=== PATIENT | male | born 1950 | race Caucasian/White ===

== ENCOUNTER → 2016-08-31 | Outpatient (CLI) | payer MEDICAID ==
[2016-08-31 08:32] LABS: Basophils # (A) 0.1 k/uL (0-0.2); Basophils % (A) 1 %; CH 29.4; CHCM 33.3; Eosinophils # (A) 0.1 k/uL (0-0.7); Eosinophils % (A) 2 %; HCT 49.4 % (39.0-53.0); HDW 3.06; HGB 16.4 gm/dL (13.0-17.5); Luc # (Auto) 0.09; Luc % (Auto) 1; Lymphocytes # (A) 1.5 k/uL (1.0-4.8); Lymphocytes % (A) 22 %; MCH 29.5 pg (25.0-35.0); MCHC 33.2 g/dL (31.0-37.0); MCV 88.7 fL (80.0-100.0); Mean Platelet Volume 7.9; Monocytes # (A) 0.3 k/uL (0-1.0); Monocytes % (A) 4 %; Neutrophils # (A) 4.7 k/uL (1.3-7.7); Neutrophils % (A) 70 %; RBC 5.57 m/uL (4.30-5.90); RDW 13.9 % (11.5-15.5); WBC 6.8 k/uL (3.8-10.6)
[2016-08-31 08:34] LABS: Appearance,Urine Clear (Clear); Bilirubin,Urine Negative (Negative); Glucose,Urine (UA) Negative (Negative); Ketones,Urine Negative (Negative); Leukocyte Esterase,Urine Negative (Negative); Nitrite,Urine Negative (Negative); PH, Urine 6.5 (5.0-8.0); Protein,Urine Negative (Negative); Specific Gravity,Urine 1.016 (1.001-1.035); UA Billing (MACRO vs. MICRO) CHEM; Urobilinogen,Urine <2.0 mg/dL (<2.0)
[2016-08-31 10:52] LABS: Erythrocyte Sedimentation Rate 2 mm/hr (0-15)
[2016-08-31 11:56] LABS: Hemoglobin A1C 4.8 % (4.2-6.1)
[2016-08-31 17:46] LABS: ALT 31 U/L (21-72); AST 26 U/L (17-59); Alkaline Phosphatase 58 U/L (38-126); Anion Gap 11 mmol/L; Blood Urea Nitrogen 20 mg/dL (9-20); Calcium 9.7 mg/dL (8.4-10.2); Carbon Dioxide 28 mmol/L (22-30); Chloride 107 mmol/L (98-107); Cholesterol 184 mg/dL (<200); Creatine Kinase 57 U/L (55-170); Glucose 95 mg/dL (74-99); HDL Cholesterol 50 mg/dL (40-60); Non-African American GFR(MDRD) >60 (>60 ml/min/1.73 sqM); Potassium 4.4 mmol/L (3.5-5.1); Sodium 146 mmol/L (137-145); Total Protein 6.9 g/dL (6.3-8.2); Triglycerides 134 mg/dL (<150)
[2016-08-31 18:14] LABS: Prostate Specific Antigen 2.69 ng/mL (0.00-4.00)
== END | disposition home or self-care (01) ==
LOC: LABWHC1 07:52
PROVIDERS: ATTEND Internal Medicine
DX: M35.3 Polymyalgia rheumatica (principal); I10 Essential (primary) hypertension; N40.0 Benign prostatic hyperplasia without lower urinary tract symptoms
CPT/HCPCS: 36415; 80053; 80061; 81003; 82306; 82550; 83036; 84153; 84439; 84443; 84550; 85025; 85652

== ENCOUNTER → 2017-04-04 | Outpatient (CLI) | payer MEDICAID ==
[2017-04-04 08:01] LABS: ALT 32 U/L (21-72); AST 26 U/L (17-59); Alkaline Phosphatase 63 U/L (38-126); Anion Gap 9 mmol/L; Blood Urea Nitrogen 18 mg/dL (9-20); Calcium 9.3 mg/dL (8.4-10.2); Carbon Dioxide 26 mmol/L (22-30); Chloride 108 mmol/L (98-107); Cholesterol 151 mg/dL (<200); Creatine Kinase 70 U/L (55-170); Glucose 91 mg/dL (74-99); HDL Cholesterol 56 mg/dL (40-60); Non-African American GFR(MDRD) >60 (>60 ml/min/1.73 sqM); Potassium 4.1 mmol/L (3.5-5.1); Sodium 143 mmol/L (137-145); Total Bilirubin 0.6 mg/dL (0.2-1.3); Total Protein 6.1 g/dL (6.3-8.2)
[2017-04-04 08:05] LABS: Basophils # (A) 0.1 k/uL (0-0.2); Basophils % (A) 1 %; CH 29.9; CHCM 32.7; Eosinophils # (A) 0.1 k/uL (0-0.7); Eosinophils % (A) 2 %; HCT 45.3 % (39.0-53.0); HDW 2.84; Luc % (Auto) 1; Lymphocytes # (A) 1.3 k/uL (1.0-4.8); Lymphocytes % (A) 16 %; MCH 30.4 pg (25.0-35.0); MCV 92.1 fL (80.0-100.0); Mean Platelet Volume 7.9; Monocytes # (A) 0.3 k/uL (0-1.0); Monocytes % (A) 4 %; Neutrophils # (A) 6.1 k/uL (1.3-7.7); Neutrophils % (A) 77 %; RBC 4.93 m/uL (4.30-5.90); WBC 7.9 k/uL (3.8-10.6); WBC (Perox) 8.21
[2017-04-04 09:04] LABS: Appearance,Urine Clear (Clear); Bilirubin,Urine Negative (Negative); Glucose,Urine (UA) Negative (Negative); Ketones,Urine Negative (Negative); Leukocyte Esterase,Urine Negative (Negative); Nitrite,Urine Negative (Negative); PH, Urine 6.5 (5.0-8.0); Protein,Urine Negative (Negative); Specific Gravity,Urine 1.016 (1.001-1.035); UA Billing (MACRO vs. MICRO) CHEM; Urobilinogen,Urine <2.0 mg/dL (<2.0)
[2017-04-04 09:40] LABS: Erythrocyte Sedimentation Rate 5 mm/hr (0-15)
[2017-04-04 10:14] LABS: Hemoglobin A1C 4.9 % (4.2-6.1)
== END | disposition home or self-care (01) ==
LOC: LAB 07:08
PROVIDERS: ATTEND Internal Medicine
DX: I10 Essential (primary) hypertension (principal); M35.3 Polymyalgia rheumatica
CPT/HCPCS: 36415; 80053; 80061; 81003; 82550; 83036; 84439; 84443; 84550; 85025; 85652

== ENCOUNTER → 2017-05-12 | Outpatient (CLI) | payer MEDICAID ==
[2017-05-12 09:18] LABS: Basophils # (A) 0.1 k/uL (0-0.2); Basophils % (A) 1 %; CH 29.5; CHCM 32.5; Eosinophils # (A) 0.1 k/uL (0-0.7); Eosinophils % (A) 2 %; HCT 50.2 % (39.0-53.0); HDW 2.84; HGB 16.2 gm/dL (13.0-17.5); Luc # (Auto) 0.07; Luc % (Auto) 1; Lymphocytes # (A) 1.2 k/uL (1.0-4.8); Lymphocytes % (A) 22 %; MCH 29.4 pg (25.0-35.0); MCHC 32.2 g/dL (31.0-37.0); MCV 91.3 fL (80.0-100.0); Mean Platelet Volume 8.4; Monocytes # (A) 0.3 k/uL (0-1.0); Monocytes % (A) 5 %; Neutrophils # (A) 3.8 k/uL (1.3-7.7); Neutrophils % (A) 69 %; WBC 5.5 k/uL (3.8-10.6); WBC (Perox) 5.46
[2017-05-12 09:52] LABS: Manual Review Performed
[2017-05-12 09:53] LABS: RBC Morphology Normal
== END | disposition home or self-care (01) ==
LOC: LABWHC1 08:32
PROVIDERS: ATTEND Internal Medicine
DX: D69.6 Thrombocytopenia, unspecified (principal)
CPT/HCPCS: 36415; 83615; 85025; 85045; 86038

== ENCOUNTER → 2017-12-04 | Outpatient (CLI) | payer MEDICARE ==
[2017-12-04 08:40] LABS: Basophils # (A) 0.1 k/uL (0-0.2); Basophils % (A) 1 %; Eosinophils # (A) 0.1 k/uL (0-0.7); Eosinophils % (A) 2 %; HCT 45.6 % (39.0-53.0); HGB 15.1 gm/dL (13.0-17.5); Lymphocytes # (A) 1.4 k/uL (1.0-4.8); Lymphocytes % (A) 25 %; MCH 29.1 pg (25.0-35.0); MCHC 33.1 g/dL (31.0-37.0); Mean Platelet Volume 7.7; Monocytes # (A) 0.3 k/uL (0-1.0); Monocytes % (A) 5 %; Neutrophils # (A) 3.7 k/uL (1.3-7.7); Neutrophils % (A) 65 %; Platelet Count 137 k/uL (150-450); RBC 5.18 m/uL (4.30-5.90); WBC 5.7 k/uL (3.8-10.6)
[2017-12-04 08:41] LABS: Appearance,Urine Clear (Clear); Bilirubin,Urine Negative (Negative); Blood,Urine Negative (Negative); Color,Urine Yellow; Glucose,Urine (UA) Negative (Negative); Ketones,Urine Negative (Negative); Leukocyte Esterase,Urine Negative (Negative); Nitrite,Urine Negative (Negative); PH, Urine 6.5 (5.0-8.0); Protein,Urine Negative (Negative); Specific Gravity,Urine 1.018 (1.001-1.035); Urobilinogen,Urine <2.0 mg/dL (<2.0)
[2017-12-04 08:54] LABS: ALT 28 U/L (21-72); AST 24 U/L (17-59); Albumin 3.9 g/dL (3.5-5.0); Alkaline Phosphatase 55 U/L (38-126); Anion Gap 10 mmol/L; Blood Urea Nitrogen 22 mg/dL (9-20); Calcium 9.2 mg/dL (8.4-10.2); Carbon Dioxide 29 mmol/L (22-30); Chloride 105 mmol/L (98-107); Cholesterol 146 mg/dL (<200); Creatine Kinase 51 U/L (55-170); Glucose 85 mg/dL (74-99); HDL Cholesterol 49 mg/dL (40-60); LDL Cholesterol,Calculated 75 mg/dL (0-99); Potassium 4.5 mmol/L (3.5-5.1); Sodium 144 mmol/L (137-145); Total Bilirubin 0.7 mg/dL (0.2-1.3); Triglycerides 109 mg/dL (<150); Uric Acid 5.2 mg/dL (3.5-8.5)
[2017-12-04 11:44] LABS: Erythrocyte Sedimentation Rate 2 mm/hr (0-15)
[2017-12-04 18:46] LABS: Hemoglobin A1C 4.9 % (4.0-6.0)
== END | disposition home or self-care (01) ==
LOC: LABWHC1 07:11
PROVIDERS: ATTEND Internal Medicine
DX: M35.3 Polymyalgia rheumatica (principal); I10 Essential (primary) hypertension
CPT/HCPCS: 36415; 80053; 80061; 81003; 82550; 83036; 84439; 84443; 84550; 85025; 85652

== ENCOUNTER → 2018-03-26 | Outpatient (CLI) | payer MEDICARE ==
--- NOTE | 2018-03-26 22:26 | MR ---
EXAMINATION TYPE: MR knee LT wo con DATE OF EXAM: 03/26/2018 COMPARISON: Outside left knee x-ray 6 days ago. HISTORY: Left knee pain for 3 weeks. TECHNIQUE: Multiplanar, multisequence images of the knee is performed without IV contrast. FINDINGS: MEDIAL MENISCUS: There is slight increased signal centrally extending towards posterior horn abutting articular surface sagittal image 25 and coronal image 22 consistent with full-thickness meniscal tea r. LATERAL MENISCUS: Anterior and posterior horns are intact without tear. CRUCIATE LIGAMENTS: The anterior and posterior cruciate ligaments are intact and unremarkable. COLLATERAL LIGAMENTS: The medial collateral ligament and lateral collateral ligament complex are inta ct. Lateral bulging of lateral collateral ligament complex is present. Mild fluid signal surrounds me dial collateral ligament. EXTENSOR MECHANISM: Visualized quadriceps and patellar tendons are intact. EFFUSION: There is small to moderate size suprapatellar joint effusion. POPLITEAL CYST: No popliteal/anna cyst. TRICOMPARTMENT SPACES: There is mild to moderate tricompartment joint space loss and spurring. CARTILAGE: There is chondromalacia patella with thinning of articular cartilage along posterior lee lar pole, full-thickness loss is present. There is fissuring and cartilaginous loss medial tibiofemor al compartment BONE MARROW SIGNAL: No focal abnormal marrow signal is appreciated. OTHER: No additional significant abnormality is appreciated. IMPRESSION: 1. Full-thickness tear central aspect medial meniscus extending to posterior horn. 2. Fairly moderate tricompartment degenerative changes most prominent patellofemoral and medial tibio femoral compartments as detailed above. 3. Mild MCL sprain injury. 4. Small to moderate sized suprapatellar joint effusion.
== END ==
LOC: RADMRIMAIN 21:44
PROVIDERS: ATTEND Orthopaedic Surgery
DX: S83.242A Other tear of medial meniscus, current injury, left knee, initial encounter (principal); M17.12 Unilateral primary osteoarthritis, left knee; S83.422A Sprain of lateral collateral ligament of left knee, initial encounter

== ENCOUNTER → 2018-04-06 | Outpatient (CLI) | payer MEDICARE ==
[2018-04-06 10:41] LABS: Basophils # (A) 0.1 k/uL (0-0.2); Basophils % (A) 1 %; Eosinophils # (A) 0.1 k/uL (0-0.7); Eosinophils % (A) 1 %; HCT 53.2 % (39.0-53.0); Lymphocytes # (A) 1.7 k/uL (1.0-4.8); Lymphocytes % (A) 25 %; MCH 28.4 pg (25.0-35.0); MCV 88.7 fL (80.0-100.0); Monocytes # (A) 0.4 k/uL (0-1.0); Monocytes % (A) 5 %; Neutrophils # (A) 4.7 k/uL (1.3-7.7); Neutrophils % (A) 67 %; Platelet Count 154 k/uL (150-450); RBC 5.99 m/uL (4.30-5.90)
[2018-04-06 12:32] LABS: Potassium 4.4 mmol/L (3.5-5.1)
== END | disposition home or self-care (01) ==
LOC: LABPAT 08:23
PROVIDERS: ATTEND Orthopaedic Surgery
DX: Z01.818 Encounter for other preprocedural examination (principal); Z01.812 Encounter for preprocedural laboratory examination; M23.92 Unspecified internal derangement of left knee
CPT/HCPCS: 80051; 85025; 93005

== ENCOUNTER 2018-04-25 09:07 | Day surgery (SDC) | payer MEDICARE ==
[2018-04-18 18:00] VITALS: BMI 29.7
--- NOTE | 2018-04-24 14:49 | HP ---
HISTORY AND PHYSICAL DATE OF SURGERY: 04/25/2018 Marshall Vasquez is a 67-year-old patient seen with progressive left knee pain. Treatment options discussed, he has hip post left knee arthroscopy. Consent obtained. PAST MEDICAL HISTORY: Hypertension. PAST SURGICAL HISTORY: Right knee arthroscopy. DAILY MEDICATIONS: 1. Losartan. 2. Alvarado. ALLERGIES: None. SOCIAL HISTORY: Patient denies tobacco use. PHYSICAL EVALUATION LEFT KNEE: Range of motion 0 to 120 degrees. Mild effusion. Tenderness medial joint line. Positive medial Thaddeus's. Ligaments stable. Hip rotation without pain. Distal neurovascular exam intact. RADIOGRAPHS: Left knee revealed mild medial and mild patellofemoral compartment osteoarthritis. MRI of the left knee, medial meniscal tear and osteoarthritic changes as well as joint effusion. IMPRESSION: Internal derangement, left knee with medial meniscal tear. PLAN: Left knee arthroscopy with partial meniscectomy and debridement. MMODL / IJN: [id number] /
[~2018-04-25 09:07] MED LIST: DEXAMETHASONE SOD PHOSPHATE 10 MG/ML 1 ML VIAL IV ONE; LACTATED RINGERS 1,000 ML IV SCH; LIDOCAINE 1% 20 ML VIAL (10MG/ML) FOR IV START INTRADERMA PRN; MIDAZOLAM 2 MG/2 ML VIAL IV PRN; ONDANSETRON 4 MG/2 ML VIAL IVP ONE; SCOPOLAMINE 1.5MG/72HR PATCH TRANSDERM ONE; ceFAZolin IN SWFI 2 GM/20 ML SYRINGE IVP ONE
[2018-04-25] MEDS ORDERED: DEXAMETHASONE SOD PHOS (MDV) 100 MG/10 ML VIAL ONE (11:11)
[2018-04-25] MEDS ORDERED: MIDAZOLAM 2 MG/2 ML VIAL ONE (11:11)
[2018-04-25] MEDS ORDERED: BUPIVACAIN-EPI 0.25%-1:200,000 30 ML VIAL SQ ONE ×2 (11:11→11:32)
[2018-04-25] MEDS ORDERED: SUCCINYLCHOLINE CHLORIDE 100 MG/5 ML SYR IV ONE (11:11)
[2018-04-25] MEDS ORDERED: KETOROLAC 30 MG/ML 1 ML VIAL ONE (11:11)
[2018-04-25] MEDS ORDERED: fentaNYL (PF) 50 MCG/ML 2 ML AMP ONE (11:11)
[2018-04-25] MEDS ORDERED: PROPOFOL 10 MG/ML 20 ML VIAL IV ONE (11:11)
[2018-04-25] MEDS ORDERED: LIDOCAINE 1% INJ 10MG/ML (20 ML MDV) ONE (11:11)
--- NOTE | 2018-04-25 12:12 | P.OP ---
Date of Procedure: 04/25/18 Preoperative Diagnosis: Internal derangement left knee Postoperative Diagnosis: 1. Tear medial and lateral meniscus left knee 2. Grade 2/3 chondromalacia medial femoral condyle left knee 3. Reactive synovitis medial and suprapatellar compartments left knee Procedure(s) Performed: 1. Arthroscopic partial medial and lateral meniscectomy left knee 2. Arthroscopic chondroplasty medial femoral condyle left knee 3. Arthroscopic partial synovectomy medial and suprapatellar compartments left knee Anesthesia: EDMONDA, local Surgeon: Milo Nickerson Estimated Blood Loss (ml): 15 Pathology: none sent Condition: stable Disposition: PACU Indications for Procedure: 67-year-old patient seen with progressive left knee pain. After having treatment options discussed, he elected to proceed with arthroscopy. Operative Findings: See description of procedure Description of Procedure: Patient was taken to the operative suite. Patient underwent a general anesthetic by the department of anesthesia. Patient was given preoperative antibiotics. The left lower extremity was placed in a well-padded arthroscopic leg lopez. The left leg was prepped and draped in the normal sterile orthopedic fashion. A lateral parapatellar and suprapatellar incision was made. Trochars were inserted. Arthroscopy was initiated. Suprapatellar pouch revealed diffuse thick reactive synovitis. The patellofemoral joint appeared to articulate congruently. There was grade 1 chondromalacia with no osteochondral tears. The scope was guided into the medial gutter. No loose bodies or plica were identified. The scope was then guided into the medial compartment. A medial parapatellar incision was made. Trocar inserted followed by probe. There was a complex tear involving the posterior horn medial meniscus. There was an area of grade 2/3 chondromalacia weightbearing surface medial femoral condyle with osteochondral tears present. There was thick reactive synovitis anteriorly. I performed a partial medial meniscectomy getting down to stable tissue. I performed a chondroplasty of the medial femoral condyle down to stable tissue. I performed a partial synovectomy decompressing that synovitis. The residual meniscus was stable. The residual osteochondral surface was stable. There was good decompression of the synovitis. Scope and probe were then guided into the intercondylar notch. Cruciates were identified, probed and found to be stable. The scope and probe were then guided into lateral compartment. There was a radial tear involving the anterior horn lateral meniscus. The remaining meniscus appeared stable. There was no symmetric chondromalacia. There was no significant synovitis present. I performed a partial lateral meniscectomy down to stable tissue. The residual meniscus was stable. The scope was in guided back into the suprapatellar compartment. I introduced a motorized shaver into the super patellar compartment. I debrided some piecemeal fragments of meniscus I encountered. I performed a partial synovectomy. The shaver was now removed. There was good decompression of the synovitis. I took one more look on the entire knee, no residual debris. Instruments were now removed from the joint. The joint was infiltrated with .25% Marcaine. Steri-Strips were applied to the portal sites. Sterile dressings were applied. The patient was placed into a JOANNA hose. No tourniquet was utilized. The patient was awakened, transferred to a bed and taken to recovery stable satisfactory condition.
[2018-04-25 12:13] VITALS: TEMP 97.3
[2018-04-25] MEDS: HYDROmorphone 0.5 MG/0.5 ML SYRINGE IVP PRN ×2 (12:21→12:32)
[2018-04-25 13:03] VITALS: RESP 18
[2018-04-25 14:39] VITALS: BP 158/78; PULSE 62
== END 2018-04-25 14:45 | disposition home or self-care (01) ==
LOC: OR 09:07
PROVIDERS: ATTEND Orthopaedic Surgery
DX: M23.322 Other meniscus derangements, posterior horn of medial meniscus, left knee (principal); M23.342 Other meniscus derangements, anterior horn of lateral meniscus, left knee; I10 Essential (primary) hypertension; M65.862 Other synovitis and tenosynovitis, left lower leg; M22.42 Chondromalacia patellae, left knee; Z79.899 Other long term (current) drug therapy
CPT/HCPCS: 29880; J2250; J1100 ×2; J2405; J2001; J3010; J1885; J0330; J2704; J1170; J0690

== ENCOUNTER → 2018-06-06 | Outpatient (CLI) | payer MEDICARE ==
[2018-06-06 12:08] LABS: HCT 46.8 % (39.0-53.0); HGB 15.5 gm/dL (13.0-17.5); MCH 29.4 pg (25.0-35.0); MCHC 33.2 g/dL (31.0-37.0); MCV 88.7 fL (80.0-100.0); Mean Platelet Volume 7.8; Platelet Count 168 k/uL (150-450); RBC 5.28 m/uL (4.30-5.90); RDW 13.6 % (11.5-15.5); WBC 6.9 k/uL (3.8-10.6)
[2018-06-06 12:45] LABS: Potassium 4.3 mmol/L (3.5-5.1)
[2018-06-06 12:46] LABS: Anion Gap 9 mmol/L; Blood Urea Nitrogen 16 mg/dL (9-20); Carbon Dioxide 28 mmol/L (22-30); Chloride 104 mmol/L (98-107); Sodium 141 mmol/L (137-145)
== END ==
LOC: LABPAT 11:01
PROVIDERS: ATTEND Internal Medicine Interventional Cardiology
DX: Z01.812 Encounter for preprocedural laboratory examination (principal); I34.0 Nonrheumatic mitral (valve) insufficiency; I34.1 Nonrheumatic mitral (valve) prolapse; I10 Essential (primary) hypertension; R06.02 Shortness of breath
CPT/HCPCS: 36415; 80051; 82565; 84520; 85027

== ENCOUNTER 2018-06-11 10:50 | Day surgery (SDC) | payer MEDICARE ==
[2018-06-06 16:56] VITALS: BMI 30.1
[2018-06-11 11:29] VITALS: TEMP 97.6
[2018-06-11] MEDS ORDERED: fentaNYL (PF) 50 MCG/ML 2 ML AMP ONE (11:32)
[2018-06-11] MEDS ORDERED: SODIUM CHLORIDE 0.9% 1,000 ML IV ONE (11:34)
[2018-06-11] MEDS ORDERED: IV FLUID CONTINUATION 1,000 ML IV ONE (11:41)
[2018-06-11] MEDS ORDERED: BENZOCAINE SPRAY 1 CAN MUCOUS MEM ONE ×2 (12:13→12:19)
[2018-06-11] MEDS ORDERED: MIDAZOLAM 2 MG/2 ML VIAL IVP ONE ×3 (12:19→12:23)
[2018-06-11] MEDS ORDERED: fentaNYL (PF) 50 MCG/ML 2 ML AMP IVP ONE (12:20)
--- NOTE | 2018-06-11 13:03 | ECHOT ---
TRANSESOPHAGEAL ECHOCARDIOGRAM DATE OF SERVICE: 06/11/2018. PERFORMING PHYSICIAN: Dmitri Aaron MD. PROCEDURE PERFORMED: Transesophageal echocardiogram. INDICATION: This is a 67-year-old gentleman with a past medical history significant for hypertension who was found to have a systolic murmur by his primary care physician. After that, a transthoracic echocardiogram performed and showed normal LV function with moderate to severe mitral regurgitation. Because of that, he was advised to undergo a transesophageal echocardiogram for further assessment. COMPLICATION: None. LEVEL OF SEDATION: Moderate with sedation length of 16 minutes. PROCEDURE DESCRIPTION: After obtaining an informed consent, explaining the procedure, benefits, risks, complications and alternatives, the patient was brought to the transesophageal echocardiogram suite. A pulse oximetry and heart rate monitors were attached to the patient prior to the procedure. The patient's throat was sprayed using lidocaine locally. Following that, the patient was turned into left lateral position. A bite guard was placed and the patient was then sedated with the above doses of Versed and fentanyl in divided doses. Following that, the transesophageal echocardiogram probe was advanced through the bite guard into the mid esophagus where 2-D echocardiogram images as well as color Doppler images of various cardiac structures were obtained. We evaluated the interatrial septum using 2-D echocardiogram, color Doppler, and contrast study. The procedure was completed. There were no complications. FINDINGS: The left ventricular dimension and systolic function appeared to be within normal limits. The ejection fraction appeared to be 55%. The right ventricle appeared to be of normal size and function. The left atrium appeared to be mildly dilated. The left atrial appendage appeared to be free from any thrombus. The interatrial septum appeared to be intact without any evidence of shunt. The aortic valve appeared to be trileaflet valve without stenosis with trace insufficiency. The mitral valve did show evidence of prolapsing of the posterior mitral leaflet with evidence of moderate to severe mitral regurgitation with anteriorly directed jet and eccentric jet. The mitral regurgitation jet was interrogated using color flow Doppler, PISA, and vena contracta measurement. By PISA, the radius came in to be 0.8 cm. The vena contracta came in to be 0.4 and 0.5 cm. The tricuspid valve and pulmonic valve appear to be within normal limits. CONCLUSION: 1. Prolapsing of the P2 component of the posterior mitral leaflet with evidence of moderate to severe mitral regurgitation with anteriorly directed jet. The mitral regurgitation was moderate to severe by color-flow Doppler, vena contract, as well as PISA. 2. Normal left ventricular systolic function with an ejection fraction of 50%-55%. 3. Overall normal cardiac chamber sizes. 4. Intact interatrial septum without any evidence of shunt. 5. Normal left atrial appendage without any evidence of thrombus. 6. Trileaflet aortic valve without stenosis with trace insufficiency. 7. Normal tricuspid valve and pulmonic valve. 8. Normal aortic root dimension. 9. No evidence of pericardial effusion. MMODL / IJN: [id number] /
[2018-06-11 13:05] VITALS: RESP 16
[2018-06-11 13:18] VITALS: BP 144/77; PULSE 57
== END 2018-06-11 13:58 | disposition home or self-care (01) ==
LOC: CATHCVL 10:50
PROVIDERS: ATTEND Internal Medicine Interventional Cardiology
DX: I34.0 Nonrheumatic mitral (valve) insufficiency (principal); I10 Essential (primary) hypertension; Z79.899 Other long term (current) drug therapy
CPT/HCPCS: 93312; 93325; J2250; J3010; 93320

== ENCOUNTER → 2019-12-06 | Outpatient (CLI) | payer MEDICARE | END | disposition home or self-care (01) | LOC: LABWHC1 11:16 | PROVIDERS: ATTEND Surgery | DX: Z11.59 Encounter for screening for other viral diseases (principal) ==

== ENCOUNTER 2019-12-10 09:26 | Day surgery (SDC) | payer MEDICARE ==
[2019-12-06 09:07] VITALS: BMI 30.1
[~2019-12-10 09:26] MED LIST changes: -DEXAMETHASONE SOD PHOSPHATE 10 MG/ML 1 ML VIAL IV ONE; +LIDOCAINE 1% (10MG/ML) FOR IV START INTRADERMA PRN; -LIDOCAINE 1% 20 ML VIAL (10MG/ML) FOR IV START INTRADERMA PRN; -MIDAZOLAM 2 MG/2 ML VIAL IV PRN; -ONDANSETRON 4 MG/2 ML VIAL IVP ONE; -SCOPOLAMINE 1.5MG/72HR PATCH TRANSDERM ONE; -ceFAZolin IN SWFI 2 GM/20 ML SYRINGE IVP ONE
[2019-12-10 09:51] VITALS: TEMP 97.6
[2019-12-10] MEDS ORDERED: PROPOFOL 10 MG/ML 20 ML VIAL IV ONE (11:13)
[2019-12-10] MEDS ORDERED: LIDOCAINE 1% INJ 10MG/ML (20 ML MDV) ONE (11:13)
--- NOTE | 2019-12-10 11:24 | P.GSHP ---
History of Present Illness H&P Date: 12/10/19 Chief Complaint: Colon cancer screening Patient here today for colonoscopy. Last colonoscopy 5-10 years ago. He is not sure if he has had polyps in the past. No bowel complaints. Past Medical History Past Medical History: Hearing Disorder / Deafness, Hypertension, Skin Disorder Additional Past Medical History / Comment(s): PSORIASIS. TINNITIS History of Any Multi-Drug Resistant Organisms: None Reported Past Surgical History: Orthopedic Surgery, Tonsillectomy Additional Past Surgical History / Comment(s): AMPUTATION OF LEFT LITTLE FINGER, COLONOSCOPY, HYDROCELE SX X2 Past Anesthesia/Blood Transfusion Reactions: No Reported Reaction Smoking Status: Never smoker - Past Family History Mother Family Medical History: Cancer Additional Family Medical History / Comment(s): breast Father Family Medical History: Pulmonary Embolus Medications and Allergies Home Medications Medication Instructions Recorded Confirmed Type Multivitamins, Thera [Multivitamin 1 tab PO DAILY 04/18/18 12/06/19 History (formulary)] Bellevue-3 Fatty Acids/Fish Oil [Fish 1 each PO DAILY 04/18/18 12/06/19 History Oil 1,000 mg Softgel] Valsartan [Diovan] 20 mg PO DAILY 06/06/18 12/10/19 History Allergies Allergy/AdvReac Type Severity Reaction Status Date / Time No Known Allergies Allergy Verified 12/10/19 09:47 Surgical - Exam Vital Signs Temp Pulse Resp BP Pulse Ox 97.6 F 54 L 18 169/78 98 12/10/19 09:48 12/10/19 09:48 12/10/19 09:48 12/10/19 09:48 12/10/19 09:48 Physical exam: General: Well-developed, well-nourished HEENT: Normocephalic, sclerae nonicteric Abdomen: Nontender, nondistended Extremities: No edema Neuro: Alert and oriented Assessment and Plan (1) Colon cancer screening Narrative/Plan: Will proceed with colonoscopy at this time Current Visit: Yes Status: Acute Code(s): Z12.11 - ENCOUNTER FOR SCREENING FOR MALIGNANT NEOPLASM OF COLON SNOMED Code(s): 432478434
[2019-12-10] MEDS ORDERED: LACTATED RINGERS 1,000 ML IV ONE ×2 (11:37→11:43)
--- NOTE | 2019-12-10 11:40 | P.PCN ---
Date of Procedure: 12/10/19 Procedure(s) Performed: PREOPERATIVE DIAGNOSIS: Colon cancer screening POSTOPERATIVE DIAGNOSIS: Ascending colon polyp, diverticulosis PROCEDURE: Colonoscopy with snare polypectomy ANESTHESIA: MAC SURGEON: Cortes Peterson M.D. SPECIMENS: Ascending colon polyp ENDOSCOPIC PROCEDURE: The patient was placed on the endoscopy table in the left decubitus position. The Olympus colonoscope was inserted into the anus and passed under direct visualization to the base of the cecum. The appendiceal orifice was visualized. From that point the scope was slowly withdrawn inspecting all surfaces carefully. There were no neoplastic inflammatory or polypoid lesions throughout the cecum. In the ascending colon a small polyp was seen. The remainder of the transverse descending sigmoid and rectum appeared normal. There was sigmoid diverticulosis present. Digital rectal examination was normal. The patient was taken to the recovery room in stable condition per anesthesia guidelines. RECOMMENDATIONS: Await biopsy results. Anticipate follow-up colonoscopy 5 years.
[2019-12-10] MEDS ORDERED: IV FLUID CONTINUATION 1,000 ML IV ONE (11:43)
[2019-12-10 11:46] VITALS: RESP 16
[2019-12-10 12:15] VITALS: BP 187/78; PULSE 50
--- NOTE | 2019-12-12 13:20 | CDI ---
Date: 12.12.19 [employer] Repairer Name: Sabina Khan Phone: If any questions, call Mary [facility] [employer] at [phone] Patient Name: Marshall Vasquez Admit Date: 12.10.19 Discharge Date: 12.10.19 ATTENTION: The [facility] Coding Staff appreciate your assistance in clarifying documentation. Please respond to the clarification below the line at the bottom and electronically sign. The [facility] Coding staff will review the response and follow-up if needed. Please note: Queries are made part of the Legal Health Record. If you have any questions, please contact the [employer]. Dear Dr. Peterson On the Colonoscopy report under procedure it says colonoscopy with snare polypectomy but in the description it does not mention you removing a polyp, you do mention it is seen. Path report does have a specimen. Please document the description of the procedure if the polypectomy was done. Thank you for your kind consideration. _Please close this as addendum was performed on 12/18. MTDD
== END 2019-12-10 12:30 | disposition home or self-care (01) ==
LOC: ORWHC2ENDO 09:26
PROVIDERS: ATTEND Surgery
DX: D12.2 Benign neoplasm of ascending colon (principal); K57.30 Diverticulosis of large intestine without perforation or abscess without bleeding; Z12.11 Encounter for screening for malignant neoplasm of colon; H91.90 Unspecified hearing loss, unspecified ear; I10 Essential (primary) hypertension; L40.9 Psoriasis, unspecified; H93.19 Tinnitus, unspecified ear; Z98.890 Other specified postprocedural states; Z90.89 Acquired absence of other organs; Z89.022 Acquired absence of left finger(s); Z87.438 Personal history of other diseases of male genital organs; Z79.899 Other long term (current) drug therapy; Z80.3 Family history of malignant neoplasm of breast; Z82.49 Family history of ischemic heart disease and other diseases of the circulatory system
CPT/HCPCS: 88305; 45385; J2001; J2704

== ENCOUNTER → 2020-06-02 | Outpatient (CLI) | payer MEDICARE ==
--- NOTE | 2020-06-02 08:29 | US ---
EXAMINATION TYPE: US abdomen complete DATE OF EXAM: 06/02/2020 COMPARISON: CT 06/21/11 CLINICAL HISTORY: R10.13 dysphagia. EXAM MEASUREMENTS: Liver Length: 16.2 cm Gallbladder Wall: 0.1 cm CBD: 0.4 cm Spleen: 11.0 cm Right Kidney: 13.0 x 5.5 x 5.3 cm Left Kidney: 12.5 x 6.4 x 5.8 cm Pancreas: Obscured by bowel gas Liver: Partially Obscured by overlying bowel gas Gallbladder: No stones seen Evidence for sonographic Man's sign: No CBD: wnl Spleen: wnl Right Kidney: Cyst lower pole = 1.9 x 2.1 x 1.5 cm Left Kidney: Upper pole cyst = 3.7 x 4.0 x 3.4 cm, Lower pole cyst = 4.0 x 2.6 x 2.8 cm Upper IVC: wnl Abd Aorta: Proximal portion not seen due to large amounts of bowel gas. No hydronephrosis or nephrolithiasis. IMPRESSION: Bilateral hypoechoic nodules within the kidneys. A nodule on the right does not meet the criteria of a simple cyst but likely is related to its small size and could be correlated with CT sca n. Hypoechoic nodules on the left appear compatible with simple cysts.
== END | disposition home or self-care (01) ==
LOC: RADUSWWP 07:44
PROVIDERS: ATTEND Internal Medicine
DX: N28.89 Other specified disorders of kidney and ureter (principal)
CPT/HCPCS: 76700

== ENCOUNTER → 2020-06-22 | Outpatient (CLI) | payer MEDICARE ==
[2020-06-22 10:10] LABS: HGB 14.7 gm/dL (13.0-17.5); MCH 28.5 pg (25.0-35.0); MCHC 31.9 g/dL (31.0-37.0); MCV 89.1 fL (80.0-100.0); Mean Platelet Volume 8.8; Platelet Count 126 k/uL (150-450); RBC 5.16 m/uL (4.30-5.90); RDW 14.1 % (11.5-15.5); WBC 6.1 k/uL (3.8-10.6)
[2020-06-22 10:19] LABS: African American GFR (CKD) >90 (>60 ml/min/1.73 sqM); Anion Gap 3 mmol/L; Blood Urea Nitrogen 17 mg/dL (9-20); Carbon Dioxide 32 mmol/L (22-30); Chloride 105 mmol/L (98-107); Non-African American GFR(CKD) 89 (>60 ml/min/1.73 sqM); Potassium 4.3 mmol/L (3.5-5.1); Sodium 140 mmol/L (137-145)
== END | disposition home or self-care (01) ==
LOC: LABPAT 09:34
PROVIDERS: ATTEND Internal Medicine Interventional Cardiology
DX: Z01.818 Encounter for other preprocedural examination (principal); R94.39 Abnormal result of other cardiovascular function study; I34.0 Nonrheumatic mitral (valve) insufficiency
CPT/HCPCS: 36415; 80051; 80053; 80061; 81003; 82565; 84443; 84520; 84550; 85027

== ENCOUNTER 2020-06-23 07:53 | Day surgery (SDC) | payer MEDICARE ==
[2020-06-22 09:43] VITALS: BMI 28.7
[~2020-06-23 07:53] MED LIST changes: +ALPRAZolam 0.25 MG TAB PO PRN; +ALPRAZolam 0.5 MG TAB PO PRN; +ASPIRIN 325 MG TAB PO ONE; +ATORVASTATIN 80 MG TAB PO ONE; -LACTATED RINGERS 1,000 ML IV SCH; -LIDOCAINE 1% (10MG/ML) FOR IV START INTRADERMA PRN; +NITROGLYCERIN SL TABS 0.4 MG TAB SUBLINGUAL PRN; +SODIUM CHLORIDE 0.9% 1,000 ML in EMPTY BAG 1 BAG IV ONE
[2020-06-23 08:26] VITALS: TEMP 98.2
[2020-06-23] MEDS ORDERED: IV FLUID CONTINUATION 1,000 ML IV ONE ×2 (08:40→09:15)
[2020-06-23] MEDS: BENZOCAINE SPRAY 1 CAN TOPICAL ONE ×2 (08:42→08:49)
[2020-06-23] MEDS ORDERED: fentaNYL (PF) 50 MCG/ML 2 ML AMP IV ONE (08:48)
[2020-06-23] MEDS ORDERED: MIDAZOLAM 2 MG/2 ML VIAL IV ONE ×2 (08:48→08:53)
[2020-06-23 09:01] VITALS: RESP 14
[2020-06-23] MEDS ORDERED: LIDOCAINE 1% INJ 10MG/ML (20 ML MDV) ONE (09:12)
[2020-06-23] MEDS ORDERED: VERAPAMIL 2.5 MG/ML 2 ML AMP ONE (09:12)
[2020-06-23] MEDS ORDERED: LIDOCAINE 1% INJ 10MG/ML (20 ML MDV) SQ ONE (09:23)
[2020-06-23] MEDS: VERAPAMIL SYRINGE (5 MG/10 ML) INTRAARTER ONE ×2 (09:26→09:36)
[2020-06-23] MEDS ORDERED: IOPAMIDOL-370 125ML BTL INJ ONE (09:35)
[2020-06-23] MEDS ORDERED: RX INFO: IV CONTRAST WAS GIVEN 1 EACH MISC MISCELLANE PRN (09:40)
[2020-06-23] MEDS ORDERED: SODIUM CHLORIDE 0.9% 1,000 ML IV SCH (09:45)
--- NOTE | 2020-06-23 10:14 | CC ---
CARDIAC CATHETERIZATION REPORT DATE OF SERVICE: June 23, 2020 PERFORMING PHYSICIAN: Dmitri Aaron MD PROCEDURE PERFORMED: 1. Selective right and left coronary angiogram. 2. Left heart catheterization. 3. Left ventriculography. INDICATION: This is a 69-year-old gentleman who with severe mitral regurgitation, who underwent a MARTA initially, he was brought today to undergo a heart catheterization. APPROACH: Right radial artery. COMPLICATION: None. LEVEL OF SEDATION: Moderate with sedation length of 15 minutes. PROCEDURE DESCRIPTION: After obtaining an informed consent, the patient was brought to the cardiac record label internship. The right radial artery was cannulated using micropuncture technique and a micropuncture wire passed easily then I placed a 6-Guyanese sheath at the right radial artery. I gave the patient 2 mg of verapamil IA. I did not give the patient any heparin because of low platelet. Selective right and left coronary angiogram performed with JR4 and JL3.5 catheters. Left heart catheterization and left ventriculography performed using a 6-Guyanese pigtail catheter. The procedure was completed without any complication. SELECTIVE CORONARY ANGIOGRAM: 1. The RCA is a large caliber vessel. It is a dominant vessel and appeared to be angiographically normal. Distally bifurcates into PDA and PLV branches, both appeared to be angiographically normal. 2. The left main is angiographically normal. It bifurcates into LCX and LAD. 3. The left circumflex is a large caliber vessel it is a nondominant vessel. The LCX is angiographically normal. In the proximal portion gives rise into OM1 which is a moderate caliber vessel, seems to be angiographically normal. In the midportion gives rise into OM 2, which is a large caliber vessel, appeared to be angiographically normal before the circumflex continues as a small to medium caliber vessel in the AV groove. 4. The LAD: The proximal LAD is angiographically normal. The mid LAD is normal and gives rise into first and second diagonal branches both appeared to be angiographically normal. The LAD distally appeared to be normal. HEMODYNAMICS: The LVEDP was 10 to 12 mmHg without significant gradient across the aortic valve. LEFT VENTRICULOGRAPHY: The left ventriculography was performed in the MCNAMARA projection and using a power injection. The left ventricular systolic function appeared to be in the range of 55% to 60%. with evidence of 4+ mitral regurgitation. CONCLUSION: 1. Normal coronary angiogram. 2. Normal left ventricular end-diastolic pressure. 3. A 4+ mitral regurgitation. MMODL / IJN: [id number] /
--- NOTE | 2020-06-23 10:14 | ECHOT ---
TRANSESOPHAGEAL ECHOCARDIOGRAM DATE OF SERVICE: June 23, 2020 PERFORMING PHYSICIAN: Dmitri Aaron MD. PROCEDURE PERFORMED: Transesophageal echocardiogram. INDICATION: Mitral regurgitation. COMPLICATION: None. LEVEL OF SEDATION: Moderate with sedation length of 12 minutes. PROCEDURE DESCRIPTION: After obtaining informed consent, the patient was brought to the transesophageal echocardiogram room. A pulse oximetry and heart rate monitors were attached to the patient. Subsequently, the patient was turned into left lateral position. A bite guard was placed after the patient's throat was sprayed using lidocaine. Subsequently and after 2 mg of Versed and 50 mcg of fentanyl, the transesophageal echocardiogram was advanced all the way to the mid esophageal where 2D echocardiogram images as well as color Doppler images of various cardiac structures were obtained. Subsequently, the transesophageal echocardiogram probe was advanced to the stomach where transgastric views were obtained. We did echocardiogram images using 2D, color Doppler, pulse-wave Doppler, and continuous-wave Doppler as well. The procedure was completed without any complication. FINDINGS: The left ventricular dimension and systolic function appeared to be within normal limits. The ejection fraction appeared to be in the range of 55% to 60%. The right ventricle appeared to be of normal size and function. The left atrium appeared to be moderately dilated. The left atrial appendage appeared to be free from any thrombus. The aortic valve is trileaflet valve without stenosis with mild insufficiency. The mitral valve appeared to be prolapsing with evidence of prolapse/flail of the posterior mitral leaflet with severe mitral regurgitation with color-flow Doppler as well as with quantitative measurement. We did calculate the effective regurgitant orifice area and that came in to be at 0.8 centimeter square. The jet is eccentric and anteriorly directed. The tricuspid valve and pulmonic valve appeared to be within normal limits. CONCLUSION: 1. Normal left ventricular dimension and systolic function with ejection fraction between 55% to 60%. 2. Normal right ventricular dimension and systolic function. 3. Mild to moderate left atrial dilatation and normal right atrial dimension. 4. Trileaflet aortic valve without stenosis with mild insufficiency. 5. Prolapse/flail of the posterior mitral leaflet with evidence of severe mitral regurgitation with eccentric anterior jet. The mitral regurgitation was severe by color-flow Doppler as well as by quantitative measurements. The effective regurgitant orifice area was 0.8 centimeter square and there was reversal flow in the pulmonary veins. 6. Normal tricuspid valve and pulmonic valve. 7. Normal aortic root dimension. 8. No evidence of pericardial effusion. 9. Intact interatrial septum. 10.Normal left atrial appendage. MMODL / IJN: [id number] /
--- NOTE | 2020-06-23 10:53 | LTR ---
June 23, 2020 Re: Marshall Vasquez Dear Dr. Gallego: Mr. Marshall Vasquez underwent today transesophageal echocardiogram as well as a heart catheterization. The transesophageal echocardiogram revealed evidence of severe mitral regurgitation. The heart catheterization revealed normal coronary angiogram with also severe mitral regurgitation and 4+ MR. The patient is going to be discharged home today and I will follow up with him in the office. I will discuss with him the need for mitral valve repair/replacement. I want to thank you for allowing me to participate in his care and please do not hesitate to call if you have any question or concern. Sincerely, MD MEGHAN Jacobs / KIANNA: [id number] /
[2020-06-23] MEDS ORDERED: VALSARTAN 40 MG TAB PO SCH (15:00)
[2020-06-23 17:47] VITALS: PULSE 48
[2020-06-23 17:48] VITALS: BP 150/73
== END 2020-06-23 15:08 | disposition home or self-care (01) ==
LOC: CATHCVL 07:53
PROVIDERS: ATTEND Internal Medicine Interventional Cardiology
DX: I08.0 Rheumatic disorders of both mitral and aortic valves (principal); I10 Essential (primary) hypertension; I49.3 Ventricular premature depolarization; R00.8 Other abnormalities of heart beat; R94.39 Abnormal result of other cardiovascular function study; Z79.899 Other long term (current) drug therapy
CPT/HCPCS: 93312; 93320; 93325; 93458; C1769; C1894; J2250; J2001; J3010; Q9967

== ENCOUNTER → 2022-04-22 | Outpatient (CLI) | payer MEDICARE ==
[2022-04-22 14:05] LABS: Basophils # (A) 0.04 X 10*3/uL (0.00-0.10); Basophils % (A) 0.7 %; Eosinophils # (A) 0.08 X 10*3/uL (0.04-0.35); Eosinophils % (A) 1.3 %; HCT 47.1 % (39.6-50.0); HGB 15.8 g/dL (13.0-17.0); Immature Grans, Automated 0.2 %; MCH 29.8 pg (27.0-32.0); MCHC 33.5 g/dL (32.0-37.0); MCV 88.9 fL (80.0-97.0); Mean Platelet Volume 10.7 fL (9.5-12.2); Monocytes # (A) 0.34 X 10*3/uL (0.20-1.00); Monocytes % (A) 5.7 %; NRBC Per 100 WBC 0 /100 WBCS (0.0-0.0); Neutrophils # (A) 4.04 X 10*3/uL (1.80-7.70); Neutrophils % (A) 67.1 %; Platelet Count 153 X 10*3/uL (140-440); RDW 13.5 % (11.5-14.5); WBC 6.01 X 10*3/uL (4.50-10.00)
[2022-04-22 16:52] LABS: African American GFR (CKD) 84.9 (60.0-200.0); Anion Gap 8.9 mmol/L (10.00-18.00); BUN/Creat Ratio 17.67 Ratio (12.00-20.00); Blood Urea Nitrogen 18.2 mg/dL (9.0-27.0); Calcium 9.6 mg/dL (8.7-10.3); Carbon Dioxide 25.9 mmol/L (20.0-27.5); Non-African American GFR(CKD) 73.3 (60.0-200.0); Potassium 4.6 mmol/L (3.5-5.5)
== END | disposition home or self-care (01) ==
LOC: LABPAT 09:52
PROVIDERS: ATTEND Urology
DX: Z01.812 Encounter for preprocedural laboratory examination (principal); N43.3 Hydrocele, unspecified
CPT/HCPCS: 80048; 85025

== ENCOUNTER 2022-04-25 12:22 | Day surgery (SDC) | payer MEDICARE ==
[2022-04-22 11:46] VITALS: BMI 29.7
--- NOTE | 2022-04-24 18:17 | P.GSHP ---
History of Present Illness H&P Date: 04/24/22 71 yo male comess for surgical excision of a right hydrocele. Has been present for several months and is bothering him. the risks and complications have been discussed - Constitutional Constitutional: Denies chills, Denies fever - EENT Eyes: denies blurred vision, denies pain Ears, nose, mouth and throat: Denies headache, Denies sore throat - Cardiovascular Cardiovascular: Denies chest pain, Denies shortness of breath - Respiratory Respiratory: Denies cough, Denies 7 - Gastrointestinal Gastrointestinal: Denies abdominal pain, Denies diarrhea, Denies nausea, Denies vomiting - Genitourinary (Female) Genitourinary: Denies dysuria, Denies hematuria - Genitourinary (Male) Genitourinary: Denies dysuria, Denies hematuria - Musculoskeletal Musculoskeletal: Denies myalgias - Integumentary Integumentary: Denies pruritus, Denies rash - Neurological Neurological: Denies numbness, Denies weakness - Psychiatric Psychiatric: Denies anxiety, Denies depression - Endocrine Endocrine: Denies fatigue, Denies weight change Past Medical History Past Medical History: Hypertension, Prostate Disorder, Skin Disorder Additional Past Medical History / Comment(s): PSORIASIS. TINNITIS History of Any Multi-Drug Resistant Organisms: None Reported Past Surgical History: Heart Catheterization, Hernia Repair, Orthopedic Surgery, Tonsillectomy Additional Past Surgical History / Comment(s): AMPUTATION OF LEFT LITTLE FINGER, LEFT KNEE ARTHROSCOPIUC , RIGHT KNEE ARTHROSCOPIC , UMBILICAL HERNIA REPAIR, REPAIR OF MITRAL VALVE, Past Anesthesia/Blood Transfusion Reactions: No Reported Reaction Smoking Status: Never smoker - Past Family History Mother Family Medical History: Cancer Additional Family Medical History / Comment(s): breast Father Family Medical History: Pulmonary Embolus Medications and Allergies Home Medications Medication Instructions Recorded Confirmed Type Multivitamins, Thera [Multivitamin 1 tab PO DAILY 04/18/18 04/22/22 History (formulary)] Valsartan [Diovan] 20 mg PO DAILY 06/06/18 04/22/22 History Ascorbic Acid [Vitamin C] 1,000 mg PO DAILY 04/22/22 04/22/22 History Aspirin 81 mg PO DAILY 04/22/22 04/22/22 History Docusate [Colace] 100 mg PO DAILY 04/22/22 04/22/22 History Metoprolol Succinate (ER) [Toprol 12.5 mg PO DAILY 04/22/22 04/22/22 History Xl] tadalafiL 5 mg PO DAILY 04/22/22 04/22/22 History Allergies Allergy/AdvReac Type Severity Reaction Status Date / Time No Known Allergies Allergy Verified 04/22/22 11:05 Surgical - Exam - General well developed, well nourished, no distress - Eyes normal ocular movement, no icteric - ENT no hearing loss, no congestion - Neck no masses, trachea midline - Respiratory normal respiratory effort, clear to auscultation - Abdomen Abdomen: soft, non tender, no guarding, no rigid, no rebound - Genitourinary medium sized right hydrocele, transilluminates. normal penis with no external lesions, testicles present, testicles non-tender - Integumentary no rash, no abnormal pigmentation - Neurologic no disoriented, no combative - Psychiatric oriented to time, oriented to person, oriented to place, speech is normal, memory intact Assessment and Plan Assessment: Impression: Right hydrocele Plan: right hydrocelectomy
[2022-04-25] MEDS ORDERED: ONDANSETRON 4 MG/2 ML VIAL ONE (12:50)
[2022-04-25] MEDS ORDERED: ONDANSETRON 4 MG/2 ML VIAL IVP ONE (12:50)
[2022-04-25] MEDS ORDERED: LACTATED RINGERS 1,000 ML IV ONE ×2 (12:50→14:58)
[2022-04-25] MEDS ORDERED: DEXAMETHASONE SOD PHOSPHATE 4 MG/ML 1 ML VIAL IV ONE (12:50)
[2022-04-25] MEDS ORDERED: hydrALAZINE HCL 20 MG/ML 1 ML VIAL IV ONE (13:05)
[2022-04-25] MEDS ORDERED: MIDAZOLAM 2 MG/2 ML VIAL IV ONE (13:18)
[2022-04-25] MEDS ORDERED: LIDOCAINE 2% INJ 20 MG/ML (2 ML VIAL) ONE (14:26)
[2022-04-25] MEDS ORDERED: fentaNYL (PF) 50 MCG/ML 2 ML AMP ONE (14:26)
[2022-04-25] MEDS ORDERED: ePHEDrine 50 MG/ML 1 ML VIAL ONE (14:26)
[2022-04-25] MEDS ORDERED: PROPOFOL 10 MG/ML 20 ML VIAL IV ONE (14:26)
[2022-04-25] MEDS ORDERED: BUPIVACAINE (PF) 0.5% 30 ML VIAL SQ ONE ×2 (14:50→15:03)
--- NOTE | 2022-04-25 15:13 | P.OP ---
Date of Procedure: 04/25/22 Preoperative Diagnosis: Right hydrocele Postoperative Diagnosis: same Procedure(s) Performed: right hydrocelectomy Anesthesia: EDMONDA Surgeon: Abhay Vincent Estimated Blood Loss (ml): 0 Pathology: none sent Condition: stable Disposition: PACU Indications for Procedure: The patient is 71. He has a complicated urologic history with a previous scrotal abscess postvasectomy many years ago, a right spermatocelectomy. For several months he now has a fluid collection in the right hemiscrotum consistent with a hydrocele. He come for hydrocelectomy Description of Procedure: Patient brought to the operating suite. Given general anesthesia. Prepped and draped sterilely. A midline scrotal incision is made. I dissect over the fluid collection over the right testicle and drain it . I inspect the fluid collection and it is a hydrocele. The right testicle is normal. I elect to do an imbricated technique as to remove the hydrocele sac would probably associated with a lot of bleeding due to the previous surgical procedures. With interrupted 3-0 chromic same imbricated the hydrocele sac a. The right testicles placed back in the hemiscrotum. The right hemiscrotum was closed with 2 layers with 3-0 chromic. A 10 mL half percent plain Marcaine block was administered. The patient's awakened and returned recovery in good condition. He tolerated procedure well be discharged home upon recovery and follow-up in the office in one week
[2022-04-25 15:24] VITALS: TEMP 97
[2022-04-25 16:16] VITALS: RESP 16
[2022-04-25 16:31] VITALS: BP 160/76; PULSE 58
== END 2022-04-25 16:59 | disposition home or self-care (01) ==
LOC: OR 12:22
PROVIDERS: ATTEND Urology
DX: N43.3 Hydrocele, unspecified (principal); I10 Essential (primary) hypertension; I34.0 Nonrheumatic mitral (valve) insufficiency; Z79.82 Long term (current) use of aspirin
CPT/HCPCS: 55040; J2250; J0360; J1100; J0690; J2405; J3010; J2704; J2001

== ENCOUNTER → 2023-02-17 | Outpatient (CLI) | payer MEDICARE ==
--- NOTE | 2023-02-18 15:03 | CT ---
EXAMINATION TYPE: CT abdomen pelvis w con CT DLP: 1600.6 mGycm, Automated exposure control for dose reduction was used. DATE OF EXAM: 02/17/2023 5:39 PM COMPARISON: CT abdomen pelvis most recent from 06/21/2011. CLINICAL INDICATION:Male, 72 years old with history of R10.9 UNSPECIFIED ABDOMINAL PAIN; lower abd pa in TECHNIQUE: Standard CT of the abdomen and pelvis following the administration of 100 cc of Isovue 3 00 IV contrast material and oral contrast. Coronal and sagittal reformats were performed. FINDINGS: LOWER CHEST: The visualized lungs are clear. Elevation of the left hemidiaphragm. Mitral annulus calc ifications. ABDOMEN LIVER: Unremarkable GALLBLADDER AND BILE DUCTS: Unremarkable. PANCREAS: Unremarkable. SPLEEN: Subcentimeter hypodense focus within the inferior aspect of the spleen likely representing be nign hemangiomas. ADRENAL GLANDS: Unremarkable. KIDNEYS AND URETERS: No evidence of hydronephrosis or renal calculus. The kidneys enhance symmetrical ly. Bilateral renal cysts with largest on the left measuring up to 3.9 cm. Contrast is demonstrated w ithin both collecting systems on the delayed phase. PELVIS BLADDER: Unremarkable REPRODUCTIVE: Prostate is enlarged in size measuring 5.9 cm in transverse dimension. ABDOMEN & PELVIS STOMACH AND BOWEL: Stomach and duodenum are unremarkable. Distal colonic diverticulosis without evide nce for acute diverticulitis. Enteric contrast reaches the mid transverse colon. The appendix is with in normal limits. No evidence of bowel obstruction. PERITONEUM: No evidence of pneumoperitoneum or free fluid. VASCULATURE: Mild atherosclerotic calcifications are present throughout the abdominal aorta and its b ranches. No evidence of aortic aneurysm. Multiple pelvic phleboliths. MUSCULOSKELETAL: No acute osseous abnormalities. Median sternotomy wires. LYMPH NODES: No gross evidence for lymphadenopathy. SOFT TISSUE/ABDOMINAL WALL: Unremarkable IMPRESSION: 1. No acute abdominal/pelvic process. 2. Colonic diverticulosis without evidence for acute diverticulitis. 3. Prostatomegaly.
== END | disposition home or self-care (01) ==
LOC: RADCTMAIN 15:46
PROVIDERS: ATTEND Internal Medicine
DX: N40.0 Benign prostatic hyperplasia without lower urinary tract symptoms (principal); K57.30 Diverticulosis of large intestine without perforation or abscess without bleeding
CPT/HCPCS: 74177; Q9967